=== PATIENT | male | born 1985 | race Caucasian/White ===

== ENCOUNTER 2020-07-08 10:33 | Emergency (ER) | payer SELFPAY ==
[~2020-07-08] VITALS: Ht 172.7 cm; Wt 68.0 kg
[2020-07-08] MEDS ORDERED: ACETAMINOPHEN 650MG/20.3ML UDC PO ONE (11:00)
[2020-07-08] MEDS ORDERED: IBUPROFEN 400MG TABLET PO ONE (11:00)
[2020-07-08 11:15] VITALS: BP 123/80
[2020-07-09] MEDS ORDERED: LIDOCAINE 5% PATCH TOP SCH (09:00)
== END 2020-07-08 11:38 | disposition home or self-care (01) ==
LOC: ER 10:57
DX: M54.9 Dorsalgia, unspecified (principal)
CPT/HCPCS: 99283